=== PATIENT | female | born 1950 | race Caucasian/White ===

== ENCOUNTER 2017-05-28 21:18 | Emergency (ER) | payer MEDICAID ==
[2017-05-28 21:26] VITALS: TEMP 98.2
--- NOTE | 2017-05-28 22:47 | CPEKG ---
Heart Rate: 87 RR Interval: 690 P-R Interval: 160 QRSD Interval: 84 QT Interval: 380 QTC Interval: 457 P [place]: 63 QRS [place]: -25 T Wave [place]: 52 EKG Severity - OTHERWISE NORMAL ECG - EKG Impression: SINUS RHYTHM EKG Impression: BORDERLINE LEFT AXIS DEVIATION Electronically Signed By: Mireya Lomeli 30-May-2017 05:26:05
[2017-05-28 22:53] LABS: % IMMATURE GRANULYOCYTES 0.4 % (0.0-1.1); ABSOLUTE IMMATURE GRANULOCYTES 0.02 10^3/uL (0.00-0.10); ADD DIFF? NO; ADD MORPH? NO; ADD SCAN? NO; ATYPICAL LYMPHOCYTE FLAG 0 (0-99); FRAGMENT RBC FLAG 0 (0-99); HEMATOCRIT 42.1 % (38.0-47.0); LEFT SHIFT FLG 0 (0-99); LIPEMIA HEMOLYSIS FLAG 80 (0-99); MEAN CELL HEMOGLOBIN 29.9 pg (27.9-34.1); MEAN CELL HEMOGLOBIN CONCENTR. 33.3 g/dL (32.4-36.7); MEAN PLATELET VOLUME 9.7 fL (8.7-11.7); PLATELET CLUMPS FLAG 10 (0-99); PLATELET COUNT 124 10^3/uL (150-400); RED BLOOD CELL COUNT 4.68 10^6/uL (4.18-5.33); RED CELL DISTRIBUTION WIDTH 13.2 % (11.5-15.2)
--- NOTE | 2017-05-28 22:59 | EDPHY ---
H & P Stated Complaint: bilat wrist/knee and back pain d/t fall 05/21 Time Seen by Provider: 05/28/17 22:17 HPI/ROS: HPI The patient presents with pain of her chest, back, wrists, knees, ankles which has been present since a fall she sustained about a week ago on May 21. She was in [place], walking on a deck with uneven boards. She got her foot caught, slipped forward and fell onto her outstretched hands, knees and ankles. She has had pain ever since. She tried to get evaluated in [place] but due to cost issues was unable to. She just returned home today and now seeks care. She is also reporting chest pain of her left chest which is tight, intermittent , mild in severity.. REVIEW OF SYSTEMS Constitutional: No fever, no chills. Eyes: No discharge. ENT: No sore throat. Cardiovascular: No chest pain, no palpitations. Respiratory: No cough, no shortness of breath. Gastrointestinal: No abdominal pain, no vomiting. Genitourinary: No hematuria. Musculoskeletal: No back pain. Skin: No rashes. Neurological: No headache. PMHx: History of STEMI in 2016, chronic lower back pain on morphine Soc Hx: Housed PHYSICAL General Appearance: Alert, no distress Eyes: Pupils equal and round no pallor or injection ENT, Mouth: Mucous membranes moist Respiratory: There are no retractions, lungs are clear to auscultation Cardiovascular: Regular rate and rhythm Gastrointestinal: Abdomen is soft and non-tender, no masses, bowel sounds normal Neurological: A&O, moves all extremities Skin: Warm and dry, no rashes Musculoskeletal: Neck is supple non tender, there is no midline back tenderness , there is bilateral blue bruising to both of the palmar aspects of her thumb, there is full range of motion of wrist and no snuffbox tenderness, she has an abrasion of her right knee. There ecchymoses of her left ankle Extremities: symmetrical, full range of motion Psychiatric: Patient is oriented X 3, there is no agitation Source: Patient Exam Limitations: No limitations - Personal History Current Tetanus/Diphtheria Vaccine: Yes - Medical/Surgical History Hx Asthma: No Hx Chronic Respiratory Disease: No Hx Diabetes: No Hx Cardiac Disease: No Hx Renal Disease: No Hx Cirrhosis: No Hx Alcoholism: No Hx HIV/AIDS: No Hx Splenectomy or Spleen Trauma: No Other PMH: PMHx:HTN, chronic back pain, uterine cancer. PSHx: choly, hysterectomy - Social History Smoking Status: Current every day smoker Constitutional: Initial Vital Signs Temperature (C) 36.8 C 05/28/17 21:22 Heart Rate 90 05/28/17 21:22 Respiratory Rate 16 05/28/17 21:22 Blood Pressure 101/71 05/28/17 21:22 O2 Sat (%) 94 05/28/17 21:22 O2 Delivery Mode Room Air Allergies/Adverse Reactions: No Known Allergies Allergy (Verified 03/26/12 12:01) Home Medications: Medication Instructions Recorded Cholecalciferol Vit D3 [Vitamin D3 50,000 unit PO WE 03/28/16 (*)] Fluticasone Nasal [Flonase Nasal 1 sprays [place] DAILY PRN 03/28/16 [place]] Herbals/Supplements -Info Only 1 ea PO DAILY 03/28/16 Aspirin EC [Aspirin EC 81 mg (*)] 162 mg PO DAILY #0 tab 03/29/16 Atorvastatin Calcium [Lipitor 10 10 mg PO DAILY #0 tab 03/29/16 mg (*)] Fluticasone Nasal [Flonase Nasal 1 sprays [place] DAILY PRN #0 mdi 03/29/16 [place]] Metoprolol Tartrate [Lopressor 50 50 mg PO BID #0 tab 03/29/16 mg (*)] amLODIPine BESYLATE [Norvasc 10 mg 10 mg PO DAILY #0 tab 03/29/16 (*)] morphINE IR [morphINE IR 30 mg (*)] 90 mg PO DAILY@15 #0 tab 03/29/16 tiZANidine HCL [Zanaflex] 8 mg PO DAILY@0530 #0 tab 03/29/16 traMADol [Ultram 50 mg (*)] 50 mg PO DAILY #0 tab 03/29/16 Medical Decision Making - Diagnostics EKG Interpretation: EKG: Complete interpretation has been separately recorded in the [facility] archive. Summary impression: Normal sinus rhythm, no ischemic changes Imaging Results: Imaging Impressions Chest X-Ray 05/28/17 22:22 Impression: No evidence of acute cardiopulmonary abnormality. Hand X-Ray 05/28/17 22:32 Impression: Probable subtle fracture dorsal aspect of the third metacarpal head with overlying soft tissue swelling. Periarticular erosion or subtle impaction fracture at the fifth metacarpal head. Imaging: Discussed imaging studies w/ weight caller Radiologist, I viewed and interpreted images myself Differential Diagnosis: This is a 66-year-old female with history of ST segment elevation [place] who presents from home after a fall about a week ago with diffuse body pain. She is complaining of chest pain as well which began after her fall. She does have a history of cardiac disease. Differential diagnosis includes muscle strain, fracture of the hand, ACS. In the emergency department, EKG was obtained and was unremarkable. Chest x- ray was also normal. Troponin was ordered and was negative. Single troponin felt to be appropriate given that the patient has had pain for about 1 week. X- rays of the hand showed possible 3rd and 5th metacarpal fractures, however patient's tenderness is over the thumb, thus I doubt these are acute. She will continue to wear the wrist brace that she has previously purchased. I have advised her to follow up with her primary care doctor if her chest pain continues, however I think this is likely musculoskeletal. - Data Points Laboratory Results: Laboratory Results 05/28/17 22:48 05/28/17 22:48 05/28/17 05/28/17 22:48 22:48 WBC 5.07 10^3/uL 10^3/uL (3.80-9.50) RBC 4.68 10^6/uL 10^6/uL (4.18-5.33) Hgb 14.0 g/dL g/dL (12.6-16.3) Hct 42.1 % % (38.0-47.0) MCV 90.0 fL fL (81.5-99.8) MCH 29.9 pg pg (27.9-34.1) MCHC 33.3 g/dL g/dL (32.4-36.7) RDW 13.2 % % (11.5-15.2) Plt Count 124 10^3/uL L 10^3/uL (150-400) MPV 9.7 fL fL (8.7-11.7) Neut % (Auto) 75.7 % H % (39.3-74.2) Lymph % (Auto) 17.6 % % (15.0-45.0) [place] % (Auto) 5.9 % % (4.5-13.0) Eos % (Auto) 0.0 % L % (0.6-7.6) Baso % (Auto) 0.4 % % (0.3-1.7) Nucleat RBC Rel Count 0.0 % % (0.0-0.2) Absolute Neuts (auto) 3.84 10^3/uL 10^3/uL (1.70-6.50) Absolute Lymphs (auto) 0.89 10^3/uL L 10^3/uL (1.00-3.00) Absolute Monos (auto) 0.30 10^3/uL 10^3/uL (0.30-0.80) Absolute Eos (auto) 0.00 10^3/uL L 10^3/uL (0.03-0.40) Absolute Basos (auto) 0.02 10^3/uL 10^3/uL (0.02-0.10) Absolute Nucleated RBC 0.00 10^3/uL 10^3/uL (0-0.01) Immature Gran % 0.4 % % (0.0-1.1) Immature Gran # 0.02 10^3/uL 10^3/uL (0.00-0.10) Sodium 141 mEq/L mEq/L (134-144) Potassium 4.4 mEq/L mEq/L (3.5-5.2) Chloride 104 mEq/L mEq/L (97-110) Carbon Dioxide 23 mEq/l mEq/l (22-31) Anion Gap 14 mEq/L mEq/L (8-16) BUN 16 mg/dL mg/dL (7-23) Creatinine 1.2 mg/dL H mg/dL (0.6-1.0) Estimated GFR 45 Glucose 98 mg/dL mg/dL (70-100) Calcium 9.4 mg/dL mg/dL (8.5-10.4) Troponin I < 0.012 ng/mL ng/mL (0-0.034) Departure - Departure Disposition: Home, Routine, Self-Care Clinical Impression: Body aches Fall Qualifiers: Encounter type: initial encounter Qualified Code(s): W19.XXXA - Unspecified fall, initial encounter Chest pain Qualifiers: Chest pain type: unspecified Qualified Code(s): R07.9 - Chest pain, unspecified Condition: Good Instructions: Chest Pain (ED) Additional Instructions: Please follow-up with your primary care doctor in the next 1-2 days. Referrals: Emilee Staples MD [Primary Care Provider] - As per Instructions
[2017-05-28 23:03] LABS: ANION GAP 14 mEq/L (8-16); CALCIUM 9.4 mg/dL (8.5-10.4); CARBON DIOXIDE 23 mEq/l (22-31); CHLORIDE 104 mEq/L (97-110); CREATININE 1.2 mg/dL (0.6-1.0); GLOMERULAR FILTRATION RATE 45; GLUCOSE 98 mg/dL (70-100); POTASSIUM 4.4 mEq/L (3.5-5.2); SODIUM 141 mEq/L (134-144)
[2017-05-28 23:15] LABS: TROPONIN I < 0.012 ng/mL (0-0.034)
[2017-05-29 00:13] VITALS: BP 155/99; PULSE 80; RESP 18; O2SAT 90
== END 2017-05-29 00:13 | disposition home or self-care (01) ==
DX: S29.9XXA Unspecified injury of thorax, initial encounter (principal); I10 Essential (primary) hypertension; F17.200 Nicotine dependence, unspecified, uncomplicated; Z85.42 Personal history of malignant neoplasm of other parts of uterus; Z79.82 Long term (current) use of aspirin; W01.0XXA Fall on same level from slipping, tripping and stumbling without subsequent striking against object, initial encounter; Y92.89 Other specified places as the place of occurrence of the external cause; Y99.8 Other external cause status; Y93.01 Activity, walking, marching and hiking

== ENCOUNTER 2018-01-25 20:47 | Emergency (ER) | payer MEDICAID, OTHER ==
--- NOTE | 2018-01-25 21:38 | EDPHY ---
H & P Stated Complaint: bilateral feet swelling, N,V Time Seen by Provider: 01/25/18 21:37 HPI/ROS: HPI: This is a 67-year-old female who presents with Chief Complaint: Bilateral leg swelling Location: Bilateral legs Quality: Swelling Duration: 24 hr Signs and Symptoms: no shortness of breath at rest, no shortness of breath on exertion, no cough, no chest pain, no palpitations, no lower extremity edema, no wheezing, no orthopnea, no paroxysmal nocturnal dyspnea, no fever, no injury/ trauma, no hemoptysis, no carpal pedal spasms Timing: Rapid onset Severity: Moderate Context: Recent trip to [place]. Over the weekend. Woke up this morning with bilateral lower extremity swelling. She is unable to fit inside of her shoes. Denies excessive salt use. Denies history of congestive heart failure. Patient reports that she had compression stockings that she was switched used approximately 2 years ago status post surgery. Patient has not tried elevating her leg. Denies weakness/paresthesias/skin color changes/decreased range of motion. Patient did not take blood pressure medications today. Prior medication list shows that she takes Norvasc and metoprolol. Patient is unsure if she takes Norvasc. 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 CONSTITUTIONAL: awake and alert, no obvious distress HEENT: Atraumatic and normocephalic, PERRL, EOMI. Tympanic membranes clear. Oropharynx clear, no exudate and moist pink mucosa. Airway patent. No lymphadenopathy. No meningismus. No JVD. Cardiovascular: Normal S1/S2, regular rate, regular rhythm, without murmur rub or gallop. PULMONARY/CHEST: Symmetrical and nontender. Clear to auscultation bilaterally. Good air movement. No accessory muscle usage. ABDOMEN: Soft, nondistended, nontender, no rebound, no guarding, no peritoneal signs, no masses or organomegaly. No CVAT. EXTREMITIES: 2/2 pulses, strength 5/5, no deformities, no clubbing, no cyanosis. Bilateral lower extremity 2+ pitting edema. No palpable cords. Negative Homans sign. NEUROLOGICAL: no focal neuro deficits. GCS 15. SKIN: Warm and dry, no erythema. no rash. Good capillary refill. Source: Patient Exam Limitations: No limitations - Medical/Surgical History Hx Asthma: No Hx Chronic Respiratory Disease: No Hx Diabetes: No Hx Cardiac Disease: No Hx Renal Disease: No Hx Cirrhosis: No Hx Alcoholism: No Hx HIV/AIDS: No Hx Splenectomy or Spleen Trauma: No Other PMH: PMHx:HTN, chronic back pain, bladder. cancer. PSHx: choly, hysterectomy,. Aynurysm removal on the heart 03/2016 - Social History Smoking Status: Current every day smoker Constitutional: Initial Vital Signs Temperature (C) 36.8 C 01/25/18 20:49 Heart Rate 115 H 01/25/18 20:49 Respiratory Rate 18 01/25/18 20:49 O2 Sat (%) 96 01/25/18 20:49 O2 Delivery Mode Room Air Allergies/Adverse Reactions: No Known Allergies Allergy (Verified 03/26/12 12:01) Home Medications: Medication Instructions Recorded Cholecalciferol Vit D3 [Vitamin D3 50,000 unit PO WE 03/28/16 (*)] Fluticasone Nasal [Flonase Nasal 1 sprays [place] DAILY PRN 03/28/16 [place]] Herbals/Supplements -Info Only 1 ea PO DAILY 03/28/16 Aspirin EC [Aspirin EC 81 mg (*)] 162 mg PO DAILY #0 tab 03/29/16 Atorvastatin Calcium [Lipitor 10 10 mg PO DAILY #0 tab 03/29/16 mg (*)] Fluticasone Nasal [Flonase Nasal 1 sprays [place] DAILY PRN #0 mdi 03/29/16 [place]] Metoprolol Tartrate [Lopressor 50 50 mg PO BID #0 tab 03/29/16 mg (*)] amLODIPine BESYLATE [Norvasc 10 mg 10 mg PO DAILY #0 tab 03/29/16 (*)] morphINE IR [morphINE IR 30 mg (*)] 90 mg PO DAILY@15 #0 tab 03/29/16 tiZANidine HCL [Zanaflex] 8 mg PO DAILY@0530 #0 tab 03/29/16 traMADol [Ultram 50 mg (*)] 50 mg PO DAILY #0 tab 03/29/16 Medical Decision Making - Diagnostics Imaging Results: Imaging Impressions Extremity Venous Study 01/25/18 21:58 Impression: 1. No evidence of lower extremity DVT. 2. Limited assessment of the calf veins. ED Course/Re-evaluation: Labs, bilateral lower extremity ultrasound ordered Vital signs ordered and show elevated blood pressure. Patient did not take blood pressure medications today for unknown reason Called by radiologist who advised that bilateral lower extremity ultrasound shows no signs of DVT. No signs of neurovascular compromise/tenting of skin/compartment syndrome/ extremities and joints examined above and below area of concern and are neurovascularly intact/cellulitis/septic arthritis/gouty arthropathy. Labs reviewed and albumin level normal with no electrolyte imbalance/acute kidney injury/anemia/leukocytosis Advised to wear compression stocking, follow-up with PCP The patient is taking Norvasc, consideration to replace with different blood pressure medication as can cause pedal edema Repeat blood pressure at discharge is improved; at bedside noted to be 174/98 This patient was seen under the supervision of my secondary supervising physician. I evaluated care for this patient independently. Differential Diagnosis: Leg swelling including but not limited to hypoalbuminemia, congestive heart failure, cor pulmonale, chronic venous stasis and DVT. - Data Points Laboratory Results: Laboratory Results 01/25/18 21:25 01/25/18 21:25 01/25/18 01/25/18 21:25 21:25 WBC 3.42 10^3/uL L 10^3/uL (3.80-9.50) RBC 4.59 10^6/uL 10^6/uL (4.18-5.33) Hgb 13.9 g/dL g/dL (12.6-16.3) Hct 41.0 % % (38.0-47.0) MCV 89.3 fL fL (81.5-99.8) MCH 30.3 pg pg (27.9-34.1) MCHC 33.9 g/dL g/dL (32.4-36.7) RDW 14.5 % % (11.5-15.2) Plt Count 118 10^3/uL L 10^3/uL (150-400) MPV 10.3 fL fL (8.7-11.7) Neut % (Auto) 65.2 % % (39.3-74.2) Lymph % (Auto) 27.2 % % (15.0-45.0) [place] % (Auto) 7.0 % % (4.5-13.0) Eos % (Auto) 0.0 % L % (0.6-7.6) Baso % (Auto) 0.3 % % (0.3-1.7) Nucleat RBC Rel Count 0.0 % % (0.0-0.2) Absolute Neuts (auto) 2.23 10^3/uL 10^3/uL (1.70-6.50) Absolute Lymphs (auto) 0.93 10^3/uL L 10^3/uL (1.00-3.00) Absolute Monos (auto) 0.24 10^3/uL L 10^3/uL (0.30-0.80) Absolute Eos (auto) 0.00 10^3/uL L 10^3/uL (0.03-0.40) Absolute Basos (auto) 0.01 10^3/uL L 10^3/uL (0.02-0.10) Absolute Nucleated RBC 0.00 10^3/uL 10^3/uL (0-0.01) Immature Gran % 0.3 % % (0.0-1.1) Immature Gran # 0.01 10^3/uL 10^3/uL (0.00-0.10) Sodium 140 mEq/L mEq/L (135-145) Potassium 4.8 mEq/L mEq/L (3.5-5.2) Chloride 103 mEq/L mEq/L (97-110) Carbon Dioxide 28 mEq/l mEq/l (22-31) Anion Gap 9 mEq/L mEq/L (8-16) BUN 20 mg/dL mg/dL (7-23) Creatinine 1.0 mg/dL mg/dL (0.6-1.0) Estimated GFR 56 Glucose 94 mg/dL mg/dL (70-100) Calcium 9.0 mg/dL mg/dL (8.5-10.4) Total Bilirubin 0.9 mg/dL mg/dL (0.1-1.4) AST 28 IU/L IU/L (14-46) ALT 33 IU/L IU/L (9-52) Alkaline Phosphatase 84 IU/L IU/L (38-126) Total Protein 7.4 g/dL g/dL (6.3-8.2) Albumin 3.6 g/dL g/dL (3.5-5.0) Medications Given: Discontinued Medications Clonidine (Catapres) 0.1 mg PO EDNOW ONE Stop: 01/25/18 23:46 Last Admin: 01/25/18 23:53 Dose: 0.1 mg Departure - Departure Disposition: Home, Routine, Self-Care Clinical Impression: Dependent edema, Essential hypertension Condition: Good Instructions: Leg Edema (ED) Additional Instructions: Please reduce salt in your diet and limit 2 g per day. Elevate legs to reduce swelling. Wear compression stockings. Laboratory studies are grossly unremarkable. Ultrasound shows no signs of blood clot in your legs. Follow-up with primary care provider in the next 5-10 days to discuss lower extremity edema and high blood pressure. Take all blood pressure medications as prescribed. Return to the ER immediately if you experience new or worsening pain, discoloration, numbness, tingling, or any other symptoms that concern you. Referrals: Emilee Staples MD [Primary Care Provider] - As per Instructions
[2018-01-25 22:06] LABS: PLATELET COUNT 118 10^3/uL (150-400)
[2018-01-25 23:40] VITALS: BP 192/115
== END 2018-01-25 23:54 | disposition home or self-care (01) ==
DX: R60.0 Localized edema (principal); I10 Essential (primary) hypertension; F17.200 Nicotine dependence, unspecified, uncomplicated; Z79.82 Long term (current) use of aspirin

== ENCOUNTER 2018-02-05 12:59 | Inpatient (IN) | payer OTHER, MEDICAID ==
--- NOTE | 2018-02-05 13:11 | EDPHY ---
H & P Stated Complaint: SWOLLEN LEGS Source: Patient Exam Limitations: No limitations - Personal History Current Tetanus/Diphtheria Vaccine: Yes - Medical/Surgical History Hx Asthma: No Hx Chronic Respiratory Disease: No Hx Diabetes: No Hx Cardiac Disease: No Hx Renal Disease: No Hx Cirrhosis: No Hx Alcoholism: No Hx HIV/AIDS: No Hx Splenectomy or Spleen Trauma: No Other PMH: PMHx:HTN, chronic back pain, bladder. cancer. PSHx: choly, hysterectomy,. Aynurysm removal on the heart 03/2016 - Social History Smoking Status: Current every day smoker Time Seen by Provider: 02/05/18 13:09 HPI/ROS: HPI: This is a 67-year-old female who presents with Chief Complaint: Swollen legs Location: Right greater than left lower leg Quality: Swelling Duration: Several weeks Signs and Symptoms: No bleeding, no radiation, no numbness, no weakness, no tingling, no incontinence, no decreased range of motion, no swelling, no pain, no fever Timing: Worsening Severity: Moderate Context: Patient presents with complaints of right greater than left lower leg swelling and mild redness that has been gradually worsening over the last several weeks. Patient was seen in this emergency room on 01/25/2018 with normal albumin and bilateral lower extremity ultrasound negative for DVT. Patient reports she is supposed to be on home oxygen but does not have a home currently as she recently moved. + tobacco user. Denies any chest pain/ shortness of breath/weakness/radiation/fever. Reports that it hurts to stand on her feet and walks. She has an appointment next week with her primary care provider. She has tried elevation with limited success. Modifying Factors: See above Comment: ROS: see HPI Constitutional: No fever, no chills, no weight loss Eyes: No blurred vision Respiratory: No shortness of breath, no cough Cardiovascular: No chest pain Gastrointestinal: No nausea, no vomiting no diarrhea Genitourinary: No dysuria Extremities: No myalgias Neurologic: No weakness, no numbness Skin: No rashes Hematologic: No bruising, no bleeding MEDICAL/SURGICAL/SOCIAL HISTORY: PMHx:HTN, chronic back pain, bladder cancer PSHx: Cholecystectomy, hysterectomy, Aneurysm removal on the heart 03/2016 Social history: + tobacco user. CONSTITUTIONAL: Smells heavily of tobacco elderly white female, awake and alert , no obvious distress HEENT: Atraumatic and normocephalic. NECK: supple, no midline tenderness, flexion 45 degrees, extension 45 degrees, right and left lateral flexion 45 degrees. No meningismus. Cardiovascular: Normal S1/S2, regular rate, regular rhythm, without murmur rub or gallop. PULMONARY/CHEST: Symmetrical and nontender. no crepitus. Clear to auscultation bilaterally diminished bases secondary to body habitus. Good air movement. No accessory muscle usage. ABDOMEN: Soft, nondistended, nontender, no ecchymosis. PELVIC: no pain with rocking; bilateral hips flexion 125 degrees, extension 30 degrees, with no pain internal rotation and no pain external rotation. BACK: No midline tenderness, no paraspinous spasm, deep tendon reflexes 2/2, no pain with straight leg raise, No foot drop. Achilles reflexes are equal bilaterally. Able to walk on heels and toes without difficulty. EXTREMITIES: 2/2 pulses, strength 5/5, good light touch sensation. no deformities, no clubbing, no cyanosis. 2+ pitting edema primarily in the feet and bilateral lower extremities up to mid tibia. KNEE: no effusion, medial and lateral joint line tenderness, full extension to 180, flexion to 120. No pain with varus and valgus exam. No pain with anterior drawer or posterior drawer test. Mild erythema noted on right ankle; medial malleolus area. No breakdown/ulceration. NEUROLOGICAL: no focal neuro deficits. GCS 15. Light touch sensation intact. SKIN: Warm and dry, no erythema. no rash. Good capillary refill. (Liz Reynoso) Constitutional: Initial Vital Signs Temperature (C) 36.8 C 02/05/18 13:06 Heart Rate 81 02/05/18 13:06 Respiratory Rate 16 02/05/18 13:06 Blood Pressure 141/78 H 02/05/18 13:06 O2 Sat (%) 87 L 02/05/18 13:06 O2 Delivery Mode Room Air Allergies/Adverse Reactions: No Known Allergies Allergy (Verified 03/26/12 12:01) Home Medications: Medication Instructions Recorded Cholecalciferol Vit D3 [Vitamin D3 50,000 unit PO WE 03/28/16 (*)] Fluticasone Nasal [Flonase Nasal 1 sprays EACHNARE DAILY PRN 03/28/16 [place]] Herbals/Supplements -Info Only 1 ea PO DAILY 03/28/16 Aspirin EC [Aspirin EC 81 mg (*)] 162 mg PO DAILY #0 tab 03/29/16 Atorvastatin Calcium [Lipitor 10 10 mg PO DAILY #0 tab 03/29/16 mg (*)] Fluticasone Nasal [Flonase Nasal 1 sprays EACHNARE DAILY PRN #0 mdi 03/29/16 [place]] Metoprolol Tartrate [Lopressor 50 50 mg PO BID #0 tab 03/29/16 mg (*)] amLODIPine BESYLATE [Norvasc 10 mg 10 mg PO DAILY #0 tab 03/29/16 (*)] morphINE IR [morphINE IR 30 mg (*)] 90 mg PO DAILY@15 #0 tab 03/29/16 tiZANidine HCL [Zanaflex] 8 mg PO DAILY@0530 #0 tab 03/29/16 traMADol [Ultram 50 mg (*)] 50 mg PO DAILY #0 tab 03/29/16 Medical Decision Making - Diagnostics Imaging Results: Imaging Impressions Chest X-Ray 02/05/18 13:15 Impression: Chest negative for acute abnormality. ED Course/Re-evaluation: I evaluated this patient with Liz and reviewed the laboratory studies. This patient has worsening bilateral pedal edema. She was here about 10 days ago and we attempted to treat her as an outpatient. Her edema has worsened despite outpatient treatment. She does have outpatient follow-up however it is not till next week. Additionally, she has worsening cellulitis right greater than left on the distal leg. She also has slightly worsening creatinine. Her creatinine on January 25 was 1.0 now it is 1.4. With ongoing cellulitis which is worsening, worsening pedal edema and worsening renal function will admit this patient to the hospital for further evaluation and treatment. This patient is not septic. We will treat her cellulitis with Ancef due to her renal insufficiency I will not initiate vancomycin. (Bear Wise) Labs, chest x-ray ordered O2 sats 87% on room air. Placed on 2 L nasal cannula. History of supplemental oxygen dependent. This x-ray my read shows no effusion, no opacity, no pneumothorax, no widened mediastinum 1417: Labs reviewed. No signs of leukocytosis/anemia/elevated LFTs/ electrolyte imbalance/coagulopathy. Creatinine 1.4; BUN 31; albumin 3.4 Leg show early cellulitis; IV Ancef given ED decision to consult for admission due to bilateral lower extremity cellulitis ; worsening renal function; worsening pedal edema. Spoke with hospitalist, Dr. Martin,who kindly agrees to admit patient and provide further care. This patient was seen under the supervision of my secondary supervising physician. I evaluated care for this patient independently. Discussed this patient with Dr. Wise who see the patient. (Liz Reynoso) Differential Diagnosis: Leg swelling including but not limited to hypoalbuminemia, congestive heart failure, cor pulmonale, chronic venous stasis and DVT. (Liz Reynoso) - Data Points Laboratory Results: Laboratory Results 02/05/18 13:30 02/05/18 13:30 02/05/18 02/05/18 13:30 13:30 WBC 4.90 10^3/uL 10^3/uL (3.80-9.50) RBC 4.44 10^6/uL 10^6/uL (4.18-5.33) Hgb 13.2 g/dL g/dL (12.6-16.3) Hct 40.1 % % (38.0-47.0) MCV 90.3 fL fL (81.5-99.8) MCH 29.7 pg pg (27.9-34.1) MCHC 32.9 g/dL g/dL (32.4-36.7) RDW 14.4 % % (11.5-15.2) Plt Count 137 10^3/uL L 10^3/uL (150-400) MPV 9.8 fL fL (8.7-11.7) Neut % (Auto) 68.8 % % (39.3-74.2) Lymph % (Auto) 23.5 % % (15.0-45.0) [place] % (Auto) 6.9 % % (4.5-13.0) Eos % (Auto) 0.2 % L % (0.6-7.6) Baso % (Auto) 0.4 % % (0.3-1.7) Nucleat RBC Rel Count 0.0 % % (0.0-0.2) Absolute Neuts (auto) 3.37 10^3/uL 10^3/uL (1.70-6.50) Absolute Lymphs (auto) 1.15 10^3/uL 10^3/uL (1.00-3.00) Absolute Monos (auto) 0.34 10^3/uL 10^3/uL (0.30-0.80) Absolute Eos (auto) 0.01 10^3/uL L 10^3/uL (0.03-0.40) Absolute Basos (auto) 0.02 10^3/uL 10^3/uL (0.02-0.10) Absolute Nucleated RBC 0.00 10^3/uL 10^3/uL (0-0.01) Immature Gran % 0.2 % % (0.0-1.1) Immature Gran # 0.01 10^3/uL 10^3/uL (0.00-0.10) Sodium 136 mEq/L mEq/L (135-145) Potassium 4.3 mEq/L mEq/L (3.5-5.2) Chloride 97 mEq/L mEq/L (97-110) Carbon Dioxide 31 mEq/l mEq/l (22-31) Anion Gap 8 mEq/L mEq/L (8-16) BUN 31 mg/dL H mg/dL (7-23) Creatinine 1.4 mg/dL H mg/dL (0.6-1.0) Estimated GFR 38 Glucose 92 mg/dL mg/dL (70-100) Calcium 8.6 mg/dL mg/dL (8.5-10.4) Total Bilirubin 0.8 mg/dL mg/dL (0.1-1.4) Conjugated Bilirubin 0.5 mg/dL mg/dL (0.0-0.5) Unconjugated Bilirubin 0.3 mg/dL mg/dL (0.0-1.1) AST 27 IU/L IU/L (14-46) ALT 39 IU/L IU/L (9-52) Alkaline Phosphatase 74 IU/L IU/L (38-126) Troponin I < 0.012 ng/mL ng/mL (0.000-0.034) NT-Pro-B Natriuret Pep 124 pg/mL pg/mL (0-125) Total Protein 6.9 g/dL g/dL (6.3-8.2) Albumin 3.4 g/dL L g/dL (3.5-5.0) Departure - Departure Disposition: [facility] Inpatient Acute Clinical Impression: Bilateral edema of lower extremity, Cellulitis of both lower extremities, Acute renal insufficiency Condition: Fair Referrals: Emliee Staples MD [Primary Care Provider] - As per Instructions
[2018-02-05 13:34] LABS: PLATELET COUNT 137 10^3/uL (150-400)
[2018-02-05] MEDS ORDERED: ceFAZolin 2 GM in NS 100 ML IV ONE (14:34)
[2018-02-05] MEDS ORDERED: ceFAZolin 2 GM/SWFI 2 GM/20 ML SYR IVP ONE (14:45)
--- NOTE | 2018-02-05 15:04 | ASMTCMCOM ---
CM Note CM Note Notes: Pt presented to the Emergency Department with bilateral swollen legs. Pt was seen in the ED 10 days ago with similar complaints. History includes HTN, chronic back pain, bladder cancer. Pt is an every day smoker and uses home oxygen at her baseline. Per MD notes, pt is scheduled to see her PCP next week. She lives alone. Pt to be admitted for further evaluation and treatment. DIscharge needs remain unclear at this time. CM will continue to folllow. Current Discharge Plan: To be determined Date Signed: 02/05/2018 03:04 PM Electronically Signed By:Nuria Cortez RN
[2018-02-05] MEDS ORDERED: ACETAMINOPHEN 325 MG TAB PO PRN (15:10)
[2018-02-05] MEDS ORDERED: ONDANSETRON 4 MG/2 ML VIAL IVP PRN (15:10)
[2018-02-05] MEDS ORDERED: ONDANSETRON DISINTEGRATING 4 MG TAB PO PRN (15:10)
[2018-02-05] MEDS ORDERED: FUROSEMIDE 40 MG/4 ML VIAL IVP ONE (17:08)
[2018-02-05] MEDS ORDERED: OXYMETAZOLINE 30 ML NASAL SPRAY EACHNARE PRN (17:08)
--- NOTE | 2018-02-05 17:16 | PDGENHP ---
History and Physical - Chief Complaint Acute leg swelling - History of Present Illness Primary care provider: Dr. Nakita Staples HPI: 67-year-old female presenting with acute worsening of lower extremity edema characterized as bilateral symmetrical lower extremity swelling with associated erythema and onset of symptom approximately 10 days prior. Patient reports that the onset of symptoms was after she road tripped from [place] to [place], and she has been living in her car. She reports that the area was initially more edematous on the right, but now they are somewhat symmetrical. She reports that the discomfort and swelling has increased and been exacerbated by standing and ambulating. She reports that she has been taking her oral diuretic over the past week, without any appreciable increase in urinary output. She reports that her oral intake of solids and liquids has been somewhat low, as the patient has been living in her car recently. History Information - Allergies/Home Medication List Allergies/Adverse Reactions: No Known Allergies Allergy (Verified 03/26/12 12:01) Home Medications: Aspirin EC [Aspirin EC 81 mg (*)] 162 mg PO HS 02/05/18 [Last Taken 02/04/18] Atorvastatin Calcium [Lipitor 10 mg (*)] 10 mg PO HS 02/05/18 [Last Taken ] Melatonin [Melatonin Oral Soln 1 mg/4 ml] 2 mg PO HS 02/05/18 [Last Taken ] Oxymetazoline HCl [Afrin Nasal [place] (OTC)] 1 spray EACHNARE BID PRN 02/05/18 [ Last Taken Unknown] morphINE IR [morphINE IR 30 mg (*)] 90 mg PO DAILY@12 02/05/18 [Last Taken 02/05 60MG] tiZANidine HCL [Zanaflex] 8 mg PO HS 02/05/18 [Last Taken 02/04/18] traMADol [Ultram 50 mg (*)] 50 mg PO DAILY@20 02/05/18 [Last Taken 02/04/18] I have personally reviewed and updated: family history, medical history, social history, surgical history - Past Medical History Additional medical history: ST-elevation myocardial infarction secondary to coronary vessel dissection requiring PCI, no stent placed, March 2016. Chronic systolic congestive heart failure with ischemic cardiomyopathy and a result ejection fraction of 40%. Chronic hypoxic respiratory failure, currently only using oxygen at night, but is been prescribed for 24 hr use. Chronic kidney disease stage 1 with baseline creatinine 1.1-1.2. Hypertension. Uterine cancer status post radiation therapy in 2013 - Surgical History Additional surgical history: Hysterectomy 2013 - Family History Additional family history: No coronary history - Social History Smoking Status: Current every day smoker Alcohol Use: None Drug Use: None Additional social history: Patient currently residing in her car, she traveled from [place] to [place] to visit her daughter, she also relocated because there are no physicians in the region of [place] where she was living would prescribe her long-term opiate therapy Review of Systems Review of Systems: ROS: 10pt was reviewed & negative except for what was stated in HPI & below Cardiac: Reports: edema (Bilateral lower extremity) Skin: Reports: other (Erythema bilateral lower extremities, edema) Physical Exam Physical Exam: Temp Pulse Resp BP Pulse Ox 36.8 C 74 18 112/79 94 02/05/18 16:00 02/05/18 16:12 02/05/18 16:00 02/05/18 16:12 02/05/18 16:12 O2 (L/minute) 2 Constitutional: no apparent distress, not in pain, chronically ill appearing, No uncomfortable Eyes: PERRL, anicteric sclera, EOMI Ears, Nose, Mouth, Throat: moist mucous membranes, hearing normal, ears appear normal, no oral mucosal ulcers Cardiovascular: regular rate and rhythym, no murmur, rub, or gallop, edema (2+ bilateral lower extremities) Respiratory: no respiratory distress, no rales or rhonchi, clear to auscultation Gastrointestinal: normoactive bowel sounds, soft, non-tender abdomen, no palpable masses, distension (Mild) Skin: other (Blanchable erythema medial malleolar aspect of right lower extremity, dorsal aspect of left lower extremity, abrasion across the dorsal aspect of the right lower extremity) Neurologic: AAOx3, sensation intact bilaterally, No weakness (Motor strength 5/ 5 bilateral extremity) Psychiatric: interacting appropriately, not anxious, not encephalopathic, thought process linear Lab Data & Imaging Review 02/05/18 13:30 02/05/18 13:30 WBC 4.90 10^3/uL (3.80-9.50) 02/05/18 13:30 RBC 4.44 10^6/uL (4.18-5.33) 02/05/18 13:30 Hgb 13.2 g/dL (12.6-16.3) 02/05/18 13:30 Hct 40.1 % (38.0-47.0) 02/05/18 13:30 MCV 90.3 fL (81.5-99.8) 02/05/18 13:30 MCH 29.7 pg (27.9-34.1) 02/05/18 13:30 MCHC 32.9 g/dL (32.4-36.7) 02/05/18 13:30 RDW 14.4 % (11.5-15.2) 02/05/18 13:30 Plt Count 137 10^3/uL (150-400) L 02/05/18 13:30 MPV 9.8 fL (8.7-11.7) 02/05/18 13:30 Neut % (Auto) 68.8 % (39.3-74.2) 02/05/18 13:30 Lymph % (Auto) 23.5 % (15.0-45.0) 02/05/18 13:30 [place] % (Auto) 6.9 % (4.5-13.0) 02/05/18 13:30 Eos % (Auto) 0.2 % (0.6-7.6) L 02/05/18 13:30 Baso % (Auto) 0.4 % (0.3-1.7) 02/05/18 13:30 Nucleat RBC Rel Count 0.0 % (0.0-0.2) 02/05/18 13:30 Absolute Neuts (auto) 3.37 10^3/uL (1.70-6.50) 02/05/18 13:30 Absolute Lymphs (auto) 1.15 10^3/uL (1.00-3.00) 02/05/18 13:30 Absolute Monos (auto) 0.34 10^3/uL (0.30-0.80) 02/05/18 13:30 Absolute Eos (auto) 0.01 10^3/uL (0.03-0.40) L 02/05/18 13:30 Absolute Basos (auto) 0.02 10^3/uL (0.02-0.10) 02/05/18 13:30 Absolute Nucleated RBC 0.00 10^3/uL (0-0.01) 02/05/18 13:30 Immature Gran % 0.2 % (0.0-1.1) 02/05/18 13:30 Immature Gran # 0.01 10^3/uL (0.00-0.10) 02/05/18 13:30 Sodium 136 mEq/L (135-145) 02/05/18 13:30 Potassium 4.3 mEq/L (3.5-5.2) 02/05/18 13:30 Chloride 97 mEq/L (97-110) 02/05/18 13:30 Carbon Dioxide 31 mEq/l (22-31) 02/05/18 13:30 Anion Gap 8 mEq/L (8-16) 02/05/18 13:30 BUN 31 mg/dL (7-23) H 02/05/18 13:30 Creatinine 1.4 mg/dL (0.6-1.0) H 02/05/18 13:30 Estimated GFR 38 02/05/18 13:30 Glucose 92 mg/dL (70-100) 02/05/18 13:30 Calcium 8.6 mg/dL (8.5-10.4) 02/05/18 13:30 Total Bilirubin 0.8 mg/dL (0.1-1.4) 02/05/18 13:30 Conjugated Bilirubin 0.5 mg/dL (0.0-0.5) 02/05/18 13:30 Unconjugated Bilirubin 0.3 mg/dL (0.0-1.1) 02/05/18 13:30 AST 27 IU/L (14-46) 02/05/18 13:30 ALT 39 IU/L (9-52) 02/05/18 13:30 Alkaline Phosphatase 74 IU/L (38-126) 02/05/18 13:30 Troponin I < 0.012 ng/mL (0.000-0.034) 02/05/18 13:30 NT-Pro-B Natriuret Pep 124 pg/mL (0-125) 02/05/18 13:30 Total Protein 6.9 g/dL (6.3-8.2) 02/05/18 13:30 Albumin 3.4 g/dL (3.5-5.0) L 02/05/18 13:30 Visualized and Interpreted Chest x-ray results: Yes Chest X-Ray results: no infiltrate Assessment & Plan Assessment: 67-year-old female presents with acutely worsening bilateral lower extremity edema resulting in acute cellulitis Plan: 1. Lower extremity edema. Acute worsening, new problem this provider, further workup indicated. Reviewed outside records including 01/25/2018 emergency department report by Liz Reynoso, ED provider, reports the patient's lower extremity started on that date following her road trip, lower extremity ultrasound demonstrated no DVT, it was recommend that she utilize compression stockings as well as oral Lasix -given patient's history of cardiomyopathy, get echocardiogram to evaluate ejection fraction -I suspect the patient has been refractory to oral dosing of Lasix given her under managed chronic kidney disease, I will adjust her diuretic to 40 mg IV twice daily and gauge effect -monitor strict I&Os, daily weights -will treat cellulitis according 2. Suspected cellulitis. Located on the bilateral lower extremities, most likely precipitated by lower extremity edema -get procalcitonin level to gauge whether the patient truly has bacterial infection -discussed with Liz Reynoso, ED provider, she reports that the patient has received IV Ancef, will continue 2 mg IV q.8 hours and gauge effect 3. Acute kidney injury on Chronic kidney disease stage 3. Review of outside records demonstrates baseline creatinine between 1.1-1.2, currently 1.4 with a contraction alkalosis indicating that the patient is intravascularly depleted but has increased total body water, potentially secondary to poor cardiac output and reduced renal perfusion -will attempt augment cardiac output by increasing diuretic dosing, monitor electrolytes closely 4. Chronic systolic congestive heart failure. Chest x-ray does not indicate a clear left-sided exacerbation, although there may be a right-sided component and we will get an echocardiogram to further evaluate -currently diuresing with IV Lasix, may require up titration if patient's echo does indicate that there is a significant right-sided component -history of ischemic cardiomyopathy and previously known ejection fraction of 40 % after the patient had coronary artery dissection -patient reports that she has only been taking metoprolol and atorvastatin, her CHF is currently under managed and she does not have a primary liquefaction supervisor -counseled patient to reestablish care with local cardiology practice -will diurese as outlined above, adjust from metoprolol to carvedilol depending on ejection fraction and will hopefully introducing JENNA-inhibitor depending on renal function -re-initiated aspirin, continue statin 5. Chronic hypoxic respiratory failure. Continue on supplemental oxygen 6. Continuous opiate dependency with chronic pain syndrome. Continue patient's home pain medications Diet. Cardiac Prophylaxis. High risk patient, heparin subcu Code. Full per patient, her brother is MD MCCALLUM Disposition. Anticipated discharge uncertain this time, anticipated length stay is greater than 48 hr for reasonable medical necessity including acute lower extremity edema potentially connected to systolic congestive heart failure with acute kidney injury and suspected cellulitis complicating her overall picture.
--- NOTE | 2018-02-05 17:45 | PDMN ---
Medical Necessity Medical necessity: C/M review: est. > 2 MN LOS for eval and TX of acute worsening bilateral lower extremity edema, suspected bilateral lower extremity edema, acute kidney injury requiring planned echocardiogram, ongoing IV Cefazolin, IV Lasix, pulse oximetry, supplemental o2, acute inpt PT/OT, comorbid chronic kidney stage 3, chronic systolic CHF, chronic hypoxic respiratory failure using O2 at night, prescribed for 24 hr. use, continuous opiate dependency with chronic pain syndrome, history of STEMI secondary to CAD requiring PCI no stent placed in March 2016, ischemic cardiomyopathy, uterine cancer S/P radiation therapy in 2012, current every day smoker, patient currently residing in her car, she travelled from [place] to [place], [place] to visit her daughter, patient also relocated because there are no physicians in the region of [place] where she was living would prescribe her long-term opiate therapy per H/P.
[2018-02-05] MEDS: ASPIRIN EC 81 MG TAB PO SCH (21:38)
[2018-02-05] MEDS: ATORVASTATIN CALCIUM 10 MG TAB PO SCH (21:39)
[2018-02-05] MEDS: ceFAZolin 2 GM/SWFI 2 GM/20 ML SYR IVP SCH (21:39)
[2018-02-05] MEDS: HEPARIN 5,000 UNIT/0.5 ML SYR SC SCH (21:40)
[2018-02-05] MEDS: traMADol 50 MG TAB PO SCH (21:41)
[2018-02-05] MEDS ORDERED: ceFAZolin 2 GM/DEXTROSE 100 ML IV SCH (22:00)
[2018-02-05] MEDS: MELATONIN PO SCH (22:05)
[2018-02-06 04:51] LABS: PLATELET COUNT 121 10^3/uL (150-400)
[2018-02-06] MEDS: ceFAZolin 2 GM/SWFI 2 GM/20 ML SYR IVP SCH (06:05)
[2018-02-06] MEDS: HEPARIN 5,000 UNIT/0.5 ML SYR SC SCH ×3 (06:05→22:37)
[2018-02-06] MEDS ORDERED: FUROSEMIDE 40 MG/4 ML VIAL IVP SCH ×2 (09:00→15:00)
[2018-02-06] MEDS ORDERED: FUROSEMIDE 40 MG/4 ML VIAL IVP ONE (11:47)
[2018-02-06] MEDS: morphINE IR 30 MG TAB PO SCH (14:04)
--- NOTE | 2018-02-06 14:13 | ECHO ---
[email or web address] [address] [address] Main: [phone] Fax: [email or web address] Echocardiogram Name: LIANG HASKINS MR#: [id number] Study Date: 02/06/2018 Study Time: 07:59 AM Date of : 1950 Age: 67 year(s) Height: 172.7 cm (68 in.) Weight: 113.4 kg (250 lb.) BSA: 2.25 m2 Gender: Female Examination: Echo Indication: Eval EF Image Quality: Contrast: Requested by: Dayton Martin BP: 117 mmHg/64 mmHg Heart Rate: Rhythm: Indication: Eval EF Procedure Staff Sport Shoe Spike Assembler: Stacy Ball [facility] Reading Physician: Jonathon Benavides MD Requesting Provider: Conclusions: Normal size left ventricle. Mild concentric LV hypertrophy. Normal global systolic LV function. The ejection fraction is estimated to be 65-70 %. No regional wall motion abnormality. Normal size right ventricle. The left atrium is normal in size. The right atrium is normal in size. The mitral valve is normal in appearance and function. Trivial to mild mitral regurgitation. Mild aortic valve regurgitation is present. The pulmonic valve is normal in appearance and function. The aorta is normal. Trivial anterior pericardial effusion vs. fat pad.. The ejection fraction is normal with a hypercontractile left ventricle. The septum is sigmoid shaped and the septum is close to causing systolic anterior motion of the mitral valve. There is probable diastolic dysfunction. consider repeat echocardiogram in 3-5 years to track these issues sooner if symptoms warrant. Measurements: Chambers Valvular Assessment AV/MV Valvular Assessment TV/PV Normal Normal Normal Name Value Range Name Value Range Name Value Range Ao [place] (MM): 3.3 cm (2.2 cm-3.7 AV Vmax: 1.70 m/s (1 m/s-1.7 TR Vmax: 2.70 mm/s ( - ) cm) m/s) TR PGmax: 29 mmHg ( - ) IVSd (2D): 1.3 cm (0.6 cm-1.1 AV maxP mmHg ( - ) syst. PAP: 34 mmHg ( - ) cm) AV meanP mmHg ( - ) LVDd (2D): 4.6 cm (3.9 cm-5.3 MV E Vmax: 0.68 m/s ( - ) cm) MV A Vmax: 0.80 m/s ( - ) Patient: LIANG HASKINS Study Date: 02/06/2018 Page 1 of 2 07:59 AM LVDs (2D): 2.2 cm (2.1 cm-4 MV E/A: 0.85 ( - ) cm) LVPWd (2D): 1.1 cm ( - ) LVEF (MOD4): 77 % (>=55 %) EF Range: 65-70 % Continued Measurements: Chambers Valvular Assessment AV/MV Valvular Assessment TV/PV Name Value Name Value Name Value LADs: 3.3 cm MV E/E' Septal: 8.80 CVP (est.): 5 mmHg LADs Lon.9 cm MV E/E' Lateral: 7.40 LA Area: 18.3 cm2 Findings: Left Ventricle: Normal size left ventricle. Mild concentric LV hypertrophy. Normal global systolic LV function. The ejection fraction is estimated to be 65-70 %. No regional wall motion abnormality. Right Ventricle: Normal size right ventricle. Left Atrium: The left atrium is normal in size. Right Atrium: The right atrium is normal in size. Mitral Valve: The mitral valve is normal in appearance and function. Trivial to mild mitral regurgitation. Aortic Valve: Cannot rule out bicuspid aortic valve. Mild aortic valve regurgitation is present. Tricuspid Valve: The tricuspid valve is normal in appearance and function. Mild tricuspid regurgitation is present. The pulmonary artery pressure is normal. Pulmonic Valve: The pulmonic valve is normal in appearance and function. Aorta: The aorta is normal. Pericardium: Trivial anterior pericardial effusion vs. fat pad.. (No Signature Object) Patient: LIANG HASKINS Study Date: 02/06/2018 Page 2 of 2 07:59 AM [id number]
--- NOTE | 2018-02-06 15:56 | ASMTCMCOM ---
CM Note CM Note Notes: Spoke with pt regarding her living situation. She took issue with our information that she is "living in her car." Apparently she did stay in her car for a couple days prior to coming to the ED for the second time in the past 2 weeks. She has a mobile home in [place]: [address] [address]; phone # [phone]. Her brother is her point of contact in an emergency: Florin Cantrell [phone]. Admissions was given this info. He recently moved to this area. Her daughter Kiley is no longer her contact. Her plan is to return to [place] after d/c from [facility]. CM will follow for any d/c needs. Date Signed: 02/06/2018 03:56 PM Electronically Signed By:OBEY Lenz
[2018-02-06] MEDS ORDERED: PNEUMOC 13-VAL CONJ-DIP CRM/PF 0.5 ML SYR IM ONE (16:54)
--- NOTE | 2018-02-06 18:08 | HOSPPROG ---
Hospitalist Progress Note Assessment/Plan: Assessment: 67-year-old female presents with acutely worsening bilateral lower extremity edema and chronic diastolic CHF Plan: 1. Lower extremity edema. Suspect this is 2/2 undertreated chronic diastolic CHF, PCT normal rendering active cellulitis less likely, skin changes are likely stasis dermatitis -increase lasix as below -stop Abx -ongoing elevation 2. Acute kidney injury on Chronic kidney disease stage 3. Increased CO w/ diuresis, improved Cr to 1.2 4. Chronic diastolic congestive heart failure. Suspect she has undertreated disease, has a hx of systolic dysfunction and ischemic cardiomyopathy s/p coronary dissection, but her EF has recovered on on Echo and now has diastolic dysfunction -goal SBP <130 -poor diuresis o/n on 40mg IV lasix, increase to 80mg bid -monitor I/O/weights -net neg 500cc o/n 5. Chronic hypoxic respiratory failure. Continue on supplemental oxygen 6. Continuous opiate dependency with chronic pain syndrome. Continue patient's home pain medications Diet. Cardiac Prophylaxis. High risk patient, heparin subcu Code. Full per patient, her brother is MD MCCALLUM Disposition. Anticipated discharge uncertain this time, requiring increase in diuretics Subjective: low UOP, no pain in legs Objective: Vital Signs Temp Pulse Resp BP Pulse Ox 36.8 C 97 16 140/86 H 96 02/06/18 15:28 02/06/18 15:28 02/06/18 15:28 02/06/18 15:28 02/06/18 15:28 Laboratory Results 02/06/18 04:02 02/06/18 04:02 02/05/18 02/06/18 02/07/18 05:59 05:59 05:59 Intake Total 500 450 Output Total 1000 2150 Balance -500 -1700 - Physical Exam Constitutional: no apparent distress, not in pain, chronically ill appearing, uncomfortable Cardiovascular: regular rate and rhythym, no murmur, rub, or gallop, edema (2+ bilat LE) Respiratory: no respiratory distress, no rales or rhonchi, clear to auscultation Gastrointestinal: normoactive bowel sounds, soft, non-tender abdomen, no palpable masses Skin: other (blanching erythema bilat malleloi and dorsum L foot, non-tender) Neurologic: AAOx3, sensation intact bilaterally, No weakness Psychiatric: interacting appropriately, not anxious, not encephalopathic, thought process linear ICD10 Worksheet Patient Problems: Problems Problem Status Onset Acute coronary syndrome Acute Coronary artery dissection Acute Hypertension Acute Bilateral edema of lower extremity Acute Cellulitis of both lower extremities Acute Acute renal insufficiency Acute
[2018-02-06] MEDS: ASPIRIN EC 81 MG TAB PO SCH (20:37)
[2018-02-06] MEDS: traMADol 50 MG TAB PO SCH (20:37)
[2018-02-06] MEDS: ATORVASTATIN CALCIUM 10 MG TAB PO SCH (20:37)
[2018-02-06] MEDS: MELATONIN PO SCH (20:38)
[2018-02-06] MEDS: NICOTINE 21 MG/24 HR PATCH TD PRN (20:47)
[2018-02-07] MEDS: HEPARIN 5,000 UNIT/0.5 ML SYR SC SCH ×3 (06:03→20:49)
[2018-02-07] MEDS ORDERED: POTASSIUM CL 10 MEQ TAB PO ONE ×2 (08:25→15:00)
[2018-02-07] MEDS: FUROSEMIDE 40 MG TAB PO SCH ×2 (11:01→15:14)
[2018-02-07] MEDS: morphINE IR 30 MG TAB PO SCH (11:20)
--- NOTE | 2018-02-07 15:02 | ASMTCMCOM ---
CM Note CM Note Notes: Reviewed chart, discussed w/RN, cleared by PT. Anticipate pt will dc independantly when medically stable. CM available if needs arise. Date Signed: 02/07/2018 03:01 PM Electronically Signed By:Keira Suero RN
--- NOTE | 2018-02-07 15:16 | HOSPPROG ---
Hospitalist Progress Note Assessment/Plan: Assessment: 67-year-old female presents with acutely worsening bilateral lower extremity edema, chronic diastolic CHF, new diagnosis of cirrhosis Plan: 1. Lower extremity edema. Suspect this is 2/2 untreated cirrhosis, see below, no e/o infxn 2. Acute kidney injury on Chronic kidney disease stage 3. Initially poor renal perfusion in setting of cirrhosis, now Cr rise to 1.4 in setting of more active diuresis 4. Chronic diastolic congestive heart failure. EF nl w/ dd, suspect that her acutely worsening LE edema is more related to cirrhosis than decompensated CHF given clear CXR (personally interpreted) 5. Chronic hypoxic respiratory failure. Continue on supplemental oxygen 6. Continuous opiate dependency with chronic pain syndrome. Continue patient's home pain medications 7. Cirrhosis. New diagnosis to this provider, further w/u indicated. Patient reports prior hx 2/2 HCV and liver biopsy 5 years ago indicating fibrosis/ cirrhosis -get liver US to confirm and ensure no portal vein thrombosis -if present on US, will add aldactone to her lasix 80 bid (adjusted from IV today, monitor additional 24hrs to ensure net neg) -monitor lytes and I/O Diet. Cardiac Prophylaxis. High risk patient, heparin subcu Code. Full per patient, her brother is MD MCCALLUM Disposition. Anticipated discharge 02/08, pending stabilization of above, patient able to maintain net even/negative status on PO diuretics Subjective: increase UOP, less discomfort/weight in legs Objective: Vital Signs Temp Pulse Resp BP Pulse Ox 36.7 C 68 17 126/70 H 91 L 02/07/18 09:15 02/07/18 09:15 02/07/18 09:15 02/07/18 09:15 02/07/18 09:15 Laboratory Results 02/06/18 04:02 02/07/18 04:14 02/06/18 02/07/18 02/08/18 05:59 05:59 05:59 Intake Total 500 850 Output Total 1000 2750 500 Balance -500 -1900 -500 - Physical Exam Constitutional: no apparent distress, not in pain, chronically ill appearing, No uncomfortable Cardiovascular: regular rate and rhythym, systolic murmur (I/ at all valves), edema (2+ bilat LE), No irregularly irregular, No tachycardia Respiratory: no respiratory distress, no rales or rhonchi, clear to auscultation Gastrointestinal: normoactive bowel sounds, soft, non-tender abdomen, no palpable masses, No distension Skin: other (mild erythema, blanchable, non-tender, no abrasion) Neurologic: AAOx3, No sensation intact bilaterally, No weakness Psychiatric: interacting appropriately, not anxious, not encephalopathic, thought process linear ICD10 Worksheet Patient Problems: Problems Problem Status Onset chronic disease mgmt/transitional care Acute Acute coronary syndrome Acute Coronary artery dissection Acute Hypertension Acute Bilateral edema of lower extremity Acute Cellulitis of both lower extremities Acute Acute renal insufficiency Acute
[2018-02-07] MEDS: SPIRONOLACTONE 50 MG TAB PO SCH (15:29)
[2018-02-07] MEDS: CYCLOBENZAPRINE 10 MG TAB PO SCH ×2 (18:37→20:49)
[2018-02-07] MEDS: ASPIRIN EC 81 MG TAB PO SCH (20:48)
[2018-02-07] MEDS: MELATONIN PO SCH (20:48)
[2018-02-07] MEDS: ATORVASTATIN CALCIUM 10 MG TAB PO SCH (20:48)
[2018-02-07] MEDS: NICOTINE 21 MG/24 HR PATCH TD PRN (20:49)
[2018-02-07] MEDS: traMADol 50 MG TAB PO SCH (20:50)
[2018-02-08] MEDS: HEPARIN 5,000 UNIT/0.5 ML SYR SC SCH (05:30)
[2018-02-08 08:35] VITALS: BP 121/76
[2018-02-08] MEDS ORDERED: CHOLECALCIFEROL VIT D3 2,000 UNITS TAB/CAP PO SCH (09:00)
[2018-02-08] MEDS: FUROSEMIDE 40 MG TAB PO SCH (10:15)
[2018-02-08] MEDS: SPIRONOLACTONE 50 MG TAB PO SCH (10:15)
[2018-02-08] MEDS: CYCLOBENZAPRINE 10 MG TAB PO SCH (10:15)
[2018-02-08] MEDS: morphINE IR 30 MG TAB PO SCH (12:59)
--- NOTE | 2018-02-08 13:13 | PDDCSUM ---
Discharge Summary Discharge Summary: DISCHARGE SUMMARY FOLLOW-UP ITEMS: Repeat creatinine BUN and lytes within the next several days prior to Nephrology appointment DATE OF ADMISSION: 02/05/2018 DATE OF DISCHARGE: 02/08/2018 DISCHARGE DIAGNOSES: 1. Acute on chronic lower extremity edema 2. Acute kidney injury on chronic kidney disease stage 3 3. Chronic diastolic congestive heart failure 4. Chronic hypoxic respiratory failure 5. Continuous opiate dependency with chronic pain syndrome 6. Chronic cirrhosis 7. Chronic hypertension 8. Vitamin-D deficiency CONSULTATIONS: None PROCEDURES / IMAGING: Echocardiogram demonstrating normal ejection fraction no significant valvular abnormalities Liver ultrasound demonstrating likely cirrhosis without any portal vein thrombosis, minimal ascites CHIEF COMPLAINT: Acute worsening lower extremity edema SUBJECTIVE: Patient is feeling improved at time of discharge, her lower extremity edema feels less tight PHYSICAL EXAM ON DISCHARGE: Systolic blood pressure is 120-160, heart rate 70 90, afebrile overnight, satting on room air, net negative 2 kg length stay, lower extremity edema is 1+ , with very minimal blanching erythema along the right medial malleoli and left dorsum of foot without any surrounding induration or ulceration LABS ON DISCHARGE: Creatinine 1.3, BUN 33, serum bicarbonate 33, potassium 3.9, serum sodium 140, vitamin-D 21.6, albumin 3.2, hemoglobin 12.6, platelets a [id number] HOSPITAL COURSE BY PROBLEM: 1. Acute on chronic lower extremity edema. This is patient's presenting chief complaint, is most likely secondary to untreated cirrhosis with resultant hypovolemia in the setting of low albumin level, recent immobility with extended road trip from [place] to [place], no evidence of cellulitis with normal procalcitonin level, antibiotics discontinued after initial dosing. The treatment for patient's edema will be discussed below. 2. Acute kidney injury on chronic kidney disease stage 3. Patient's creatinine level peaked at 1.4, most likely secondary to poor renal perfusion in the setting of cirrhosis, requiring more active diuresis. After making the patient net negative, her creatinine level has improved and stabilized around 1.3. I recommend that she follow up with outpatient Nephrology for ongoing diuretic management in the setting of comorbid chronic kidney disease, as her volume status will be particularly challenging and her electrolytes will require monitoring. 3. Chronic cirrhosis. The cause of the patient's lower extremity edema is untreated cirrhosis, and the patient underwent liver biopsy approximately 5 years ago which reportedly indicated development of fibrosis and cirrhosis at that time. The patient has a history of hepatitis C virus and I suspect that her cirrhosis is secondary to this issue. The patient will require outpatient hepatology follow-up, and I have recommended that she follow up with Dr. Caceres. I have also recommend to the patient that she continue on diuretics to manage her edema and these currently consist of Lasix 80 mg twice daily and Aldactone 50 mg once daily. Her potassium level has remained stable at 3.9, and she will require outpatient electrolyte monitoring moving forward. She may receive up titration of her Aldactone if her blood pressure will permit. She has a history of chronic hypertension is previously been on metoprolol, but this has been discontinued to favor management with diuretics moving forward. 4. Chronic diastolic congestive heart failure. Patient has a previous history of coronary artery dissection and resultant ischemic cardiomyopathy, but her ejection fraction has completely recovered now she has diastolic dysfunction, likely secondary to longstanding hypertension. She currently does not have any evidence of congestive heart failure exacerbation on chest imaging. Will hold off on further medications other than her home dosage of aspirin and statin. 5. Chronic pain with continuous opiate dependency. Management of patient's chronic pain is her central issue, as she travels from her home in [facility] to [facility] so that she is able to obtain her chronic pain medications from her primary care provider, Dr. Nakita Staples, on a monthly basis. The patient reports that she has been unable to establish care with a new provider in her home state of [place] who will supply her with these pain medications. Consequently, the patient makes the monthly Pilgrimage to [place] in order to obtain her pain meds. 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 Furthermore, the patient is reluctant to establish medical care in that area because she relies on her pain medications from her local [place] doctor. I recommended to the patient that she continue to work with a drug abuse social worker either in her PCPs office or in her local area of [facility] in order to rectify this issue. It should be noted that the patient is not abusing her pain medications, and she is requiring them for pain management and taking them as prescribed. 6. Chronic hypoxic respiratory failure. Is recommended the patient remain on chronic supplemental oxygen. 7. Vitamin-D deficiency. Chronic, patient requiring optimization for bone health in the setting chronic kidney disease, vitamin-D 2000 units daily ordered. DISCHARGE MEDICATIONS: Please see official discharge medication reconciliation sheet in chart , continue all home medications with the discontinuation of metoprolol, initiation of Aldactone 50 mg daily, initiation of Lasix 80 mg twice daily. DISCHARGE INSTRUCTIONS: Please immediately follow up with [facility] and have labs performed prior to that appointment, please schedule follow-up with hepatology in 2 weeks , please work on establishing local medical care in [facility] or in establishing monthly care here in the [facility]. TIME SPENT: Greater than 30 minutes were spent on direct patient care, as well as discharge planning and preparation.
== END 2018-02-08 17:04 | disposition home or self-care (01) | DRG 433 ==
LOC: F1N 16:05
PROVIDERS: ADMIT Internal Medicine; ATTEND Internal Medicine
DX: K74.60 Unspecified cirrhosis of liver (principal); N17.9 Acute kidney failure, unspecified; I13.0 Hypertensive heart and chronic kidney disease with heart failure and stage 1 through stage 4 chronic kidney disease, or unspecified chronic kidney disease; N18.3 Chronic kidney disease, stage 3 (moderate); I50.32 Chronic diastolic (congestive) heart failure; J96.11 Chronic respiratory failure with hypoxia; G89.29 Other chronic pain; F11.20 Opioid dependence, uncomplicated; E55.9 Vitamin D deficiency, unspecified; I25.10 Atherosclerotic heart disease of native coronary artery without angina pectoris; I25.2 Old myocardial infarction; Z85.51 Personal history of malignant neoplasm of bladder; Z92.3 Personal history of irradiation; Z86.19 Personal history of other infectious and parasitic diseases; F17.210 Nicotine dependence, cigarettes, uncomplicated
CPT/HCPCS: 96374; 97161-GP; G0009; G8978-GP-CH; G8979-GP-CH; G8980-GP-CH; J0690; J1644; J1940

== ENCOUNTER → 2018-04-27 | Outpatient (CLI) | payer OTHER, MEDICAID | LOC: FIMAGING 13:02 | PROVIDERS: ATTEND Family Medicine | DX: M16.12 Unilateral primary osteoarthritis, left hip (principal) ==